=== PATIENT | male | born 1990 | race African-American/Black ===

== ENCOUNTER 2024-05-22 22:41 | Emergency (ER) | payer OTHER ==
[2024-05-22 22:51] VITALS: BP 122/73; PULSE 92; RESP 20; TEMP 98.4; BMI 36.3
[2024-05-22] MEDS: BACITRACIN 0.9 GM PACKET TP ONE (23:30)
[2024-05-22] MEDS ORDERED: BACITRACIN 0.9 GM PACKET ONE (23:31)
[2024-05-23] MEDS ORDERED: DIPHTH,PERTUSS(ACELL),TET 0.5 ML DISP.SYRIN IM ONE (01:17)
[2024-05-23] MEDS ORDERED: AMOX TR/POT CLAV 875MG/125MG TABLETS (FP) ONE (01:17)
[2024-05-23] MEDS: DIPHTH,PERTUSS(ACELL),TET 0.5 ML DISP.SYRIN IM ONE (01:20)
[2024-05-23] MEDS: AMOX TR/POT CLAV 875MG/125MG TABLETS (FP) PO ONE (01:20)
== END 2024-05-23 01:29 | disposition home or self-care (01) ==
LOC: JER 22:41
PROC: 3E0234Z Introduction of Serum, Toxoid and Vaccine into Muscle, Percutaneous Approach (ICD-10-PCS; principal; 2024-05-23)
DX: S61.210A Laceration without foreign body of right index finger without damage to nail, initial encounter (principal); W50.3XXA Accidental bite by another person, initial encounter; Z23 Encounter for immunization
CPT/HCPCS: 73110-TC-RT-FY; 73130-TC-RT-FY; 90715; 99284-25

== ENCOUNTER 2024-05-26 18:34 | Emergency (ER) | payer OTHER ==
[2024-05-26 18:49] VITALS: BP 148/93; PULSE 73; RESP 18; TEMP 97.9; BMI 36.3
== END 2024-05-26 19:49 | disposition home or self-care (01) ==
LOC: JERFT 18:34
DX: Z48.00 Encounter for change or removal of nonsurgical wound dressing (principal)
CPT/HCPCS: 99283-25